=== PATIENT | female | born 1965 | race Caucasian/White ===

== ENCOUNTER 2023-08-27 19:03 | Emergency (ER) | payer OTHER, SELFPAY ==
[2023-08-27 19:04] VITALS: BP 164/114
[2023-08-27 19:28] VITALS: BMI 38.5
[2023-08-27 19:32] VITALS: BP 143/95
--- NOTE | 2023-08-27 19:51 | ED.GENMED ---
History of Present Illness
General
Chief Complaint: Musculo-Skeletal Complaint
Source: patient
Exam Limitations: none
Time Seen by Provider: 08/27/23 19:27
Travel History
Have you had any contact with someone who has COVID-19?: No
Do you have any symptoms of coronavirus? Fever > 100 degrees, chills, cough, shortness of breath, sore throat, loss of taste or smell, muscle aches, or headache?: No
History of Present Illness
History of Present Illness:
This is a 58 year old female that comes in with c/o pain.States that she has had pain for the pat 2 years and it is just getting worse. State that his started in the left hip area and goes on the lateral aspect of the left leg to the knee and comes
back into the left grown and around to the hip. States that she went to see the PCP in April and she was given Celebrex. States that she doesn't like to take medication and did not take it consistently. States that at first she thought it helped
and then she would go off. Recently she took this for about 2 weeks and she felt that her BP was going up so she stopped it again. States that she has tried PT, Right light therapy and Ultrasound. States that she has used head and ice. Last few
months she feels that the pain is getting worse. Denies any fever, chills, chest pain, SOB, abd pain, nausea vomiting, diarrhea, headache, dizziness, urinary burning.
Past History
Past History
ED Past Medical History: Asthma and Other (Back pain Disc problems, Psoriasis)
ED Past Surgical History: Orthopedic (3rd digit reconstructed, Left knee) and Other (Left eardrum sx. Deviated septum, Sx, )
Social History
Tobacco: Non-smoker
Alcohol: Occasional
Personal:
Living: with family
Employment: Employed
Review of Systems
Review of Systems
All Other Systems: ROS reviewed and negative except as documented in HPI and ROS
Constitutional: Reports no symptoms; Denies fever or chills
EENT: Reports no symptoms
Respiratory: Reports no symptoms; Denies cough or trouble breathing
Cardiac: Reports no symptoms; Denies chest pain
ABD/GI: Reports no symptoms; Denies abdominal pain, nausea, vomiting or diarrhea
: Reports no symptoms; Denies dysuria, frequency or urgency
Musculoskeletal: Reports other (Pain in the left hip down to the left knee)
Skin: Reports no symptoms
Neurological: Reports no symptoms; Denies dizzy or headache
Psychiatric: Reports no symptoms
Phy Exam
General Physical Exam
General Presentation: well appearing and no apparent distress
General age: appears stated age
General Skin: warm and dry
General Habitus: normal
General Mental: alert
General Hydration: appears well hydrated
ENT Exam
ENT Exam: TM's normal, pharynx normal and neck supple
Eye Exam
Eye Exam: EOMI
Cardiovascular Exam
Cardiovascular Exam: regular rate/rhythm, no edema, no murmur and normal peripheral pulses
Pulmonary Exam
Pulmonary Exam: lungs clear, no respiratory distress, no rales, chest non tender, no crackles, no rhonchi, no wheezing and no cough
Gastrointestinal Exam
Gastrointestinal Exam: normal bowel sounds, non tender, soft, no organomegaly, no pulsatile mass and non distended
Musculoskeletal Exam
Musculoskeletal Exam: full ROM, no edema and other (Negative for discomfort with inversion, eversion. Left hip discomfort with flexion of the left knee ,Negative for back discomfort at this time)
Skin Exam
Skin Exam: normal color, warm/dry, no petechia and other (red scaly rash noted on both hands (Psoriasis))
Psychiatric Exam
Psychiatric Exam: normal mood/affect
Course
Orders/Labs/Results
Orders:
Orders
08/27/23 19:09
Knee, Left 4 or More Views [CR Knee - Left 4 Or More View*] Urgent
Comment:
Reason For Exam: PAIN
08/27/23 19:41
Hip, Left 2-3 Views [CR Hip - LT w/wo Pel 2-3 Vw*] Urgent
Comment:
Reason For Exam: Pain
Include a pelvis x-ray?: Yes
08/27/23 19:56
CRP [C-Reactive Protein] Urgent
Complete Blood Count/With Diff Urgent
Comprehensive Metabolic Panel Urgent
Sed Rate [Erythrocyte Sed Rate] Urgent
08/27/23 20:09
Dextrose 50%-Water [Dextrose 50% Syringe] 25 grams IV NOW STA
08/27/23 21:57
US Periph Venous LOWER Ext LT Urgent
Comment:
Reason For Exam: swelling pain
Abnormal Lab Results
08/27/23
19:56
MCV 80.9 L fL
(81.0-99.0)
RDW 14.6 H %
(11.5-14.5)
C-Reactive Protein 21.00 H mg/L
(0.0-10.00)
08/27/23 19:56
08/27/23 19:56
Labs unremarkable. Sed rate normal at 18, CRP elevated at 21.0
Vital Signs
Initial and Last Documented VS:
Initial Vital Signs
Temp Pulse Resp BP Pulse Ox
98.4 F 96 22 164/114 98
08/27/23 19:04 08/27/23 19:04 08/27/23 19:04 08/27/23 19:04 08/27/23 19:04
Last Documented Vital Signs
Temp Pulse Resp BP Pulse Ox
98.4 F 96 22 143/95 98
08/27/23 19:04 08/27/23 19:04 08/27/23 19:04 08/27/23 19:32 08/27/23 19:32
MDM/Problems Addressed
Differential Diagnosis Includes:
Psoriatic arthritis, DVT, Bakers cyst
MDM/Problems Addressed:
This is a 58 year old female that comes in with c/o pain in the left hip and knee. States that this has been going on for the past 2 years but feels that this is getting worse.
Will check labs, X-ray left hip and left knee
Back into see patient. explained that her blood work is normal. Sed rate is normal but the CRP is elevated. This is most likely Psoriatic arthritis. Will get US of the left leg to r/o a DVT.
Into see patient. Explained that the US is negative. Patient to follow up with the Instructional Resource Teacher and the environmental remediation specialist. Patient will be place on Prednisone for the next 5 days and will give first dose tonight. Patient to return with any
concerns .
Chronic conditions affecting care:
NA
Acute Exacerbation and/or Progression of Chronic Illness:
NA
*Radiology
Radiology exam reviewed: radiology read reviewed (left hip=No acute fracture or dislocation. Left knee-no acute fracture or dislocation. mild tricompartmental osteoarthritis of the left knee. US-No sonographic evidence for left lower extremity
DVT)
*Pulse Oximetry
Patient hypoxic: no
*EKG
Interpreted by ED Provider?: NA
Rate: EKG- N/A
*Appeals Representative Interpretation
Rate: Appeals Representative- N/A
*Critical Care Note
Total Time (30-74mins, 75-104mins- exclusive of procedures): Not Applicable
ED Attending Note
-
Portions of this chart may have been created with voice recognition software.� Occasional wrong word or��sound alike� substitutions may have occurred due to the inherent limitations of voice recognition software.
Discharge Plan
Departure
Patient Disposition: Home (Routine Discharge)
Date of Disposition: 08/27/23
Time of Disposition: 22:34
Patient with high blood pressure during this ER visit?: Yes
Condition: Good
Covid-19: Not Applicable
Discharge Problem:
Joint pain, Swelling of left lower extremity
Instructions: Hip pain in adults, Knee Pain ED, BLOOD PRESSURE
Prescriptions:
New
prednisone 20 mg tablet
40 mg PO DAILY Qty: 8 0RF
Referrals:
Shey Casas DO [Active] - Call in 1-3 days for appt
Jairo Owens DO [Family Provider] - Call in 1-3 days for appt
Activity Restrictions/Additional Instructions:
As discussed, your blood work shows that your Sed rate is normal but the CRP which is also an inflammatory marker is elevated. Otherwise your labs are normal. Your US is negative for DVT and your x-ray of the hip is normal and the knee there is mild
osteoarthrosis. Please follow up with the Instructional Resource Teacher and the environmental remediation specialist. This may be Psoriatic arthritis. You have been given your first dose of steroid here and a prescription for the next 4 days has been sent to your Pharmacy. A
lyme titer has been sent but this will not come back tonight. If this is positive you will be called. IF YOU HAVE ANY OTHER CONCERNS PLEASE RETURN TO THE EMERGENCY ROOM.
Interventions
Interventions:
*Risk Screen - Suicide Last Done: 08/27/23 19:04
*General Assessment Last Done: 08/27/23 19:34
*Neglect/Abuse Screening Last Done: 08/27/23 19:04
ED- Fall Risk Assessment Last Done: 08/27/23 19:34
ED-Musculoskeletal Assessment Last Done: 08/27/23 19:34
Discharge Date and Time
Print Language: SAO TOMEAN
[2023-08-27 20:00] VITALS: BP 131/78
[2023-08-27 20:04] LABS: % Basophils 1.2 % (0-2); % Immature Granulocytes 0.1 % (0-0.5); % Monocytes 6.5 % (1.7-9.3); % Neutrophils 53.2 % (42.2-75.2); Absolute Basophils 0.1 10^3/uL (0-0.2); Absolute Eosinophils 0.3 10^3/uL (0-0.7); Absolute Lymphocytes 2.9 10^3/uL (1.2-3.4); Absolute Monocytes 0.5 10^3/uL (0.1-0.6); Absolute Neutrophils 4.3 10^3/uL (1.4-6.5); Hematocrit 40.6 % (37.0-47.0); Hemoglobin 13.8 g/dL (12.0-16.0); Mean Corpuscular Hgb 27.5 pg (27.0-31.0); Mean Corpuscular Volume 80.9 fL (81.0-99.0); Mean Platelet Volume 9.4 fL (7.4-10.4); Nucleated Red Blood Cells % 0 %; Platelet Count 310 10^3/uL (130-400); Red Blood Cell Count 5.02 10^6/uL (4.20-5.40); Red Cell Dist. Width 14.6 % (11.5-14.5); White Blood Cell Count 8.2 10^3/uL (4.8-10.8)
[2023-08-27 20:09] LABS: Erythrocyte Sed Rate 18 mm/hour (0-20)
[2023-08-27 20:31] LABS: ALT (SGPT) 19 U/L (0-35); AST (SGOT) 25 U/L (14-36); Albumin 4.5 g/dl (3.5-5.0); Alkaline Phosphatase 121 U/L (38-126); Blood Urea Nitrogen 15 mg/dl (7-17); Calcium 9.7 mg/dl (8.4-10.2); Carbon Dioxide 26 mmol/L (22-30); Chloride 103 mmol/L (98-107); Estimated Creatinine Clearance > 125 ml/min; Glucose 99 mg/dl (70-99); Potassium 4.2 mmol/L (3.5-5.1); Sodium 140 mmol/L (135-145); Total Bilirubin 0.5 mg/dl (0.2-1.3); Total Protein 7.7 g/dl (6.3-8.2); eGFR > 60.00
[2023-08-27 22:55] VITALS: BP 141/91
[2023-08-27] MEDS: DELTASONE 50 MG PO (22:57)
[2023-08-27 22:58] VITALS: BP 141/91
[2023-08-30 13:58] LABS: Lyme Antibody Screen, EIA Negative (Negative)
== END 2023-08-27 23:00 | disposition home or self-care (01) ==
LOC: EMR 19:03
PROVIDERS: Clinical Nurse Specialist Family Health; EMERGENCY PHYSICIAN Emergency Medicine; FAMILY PHYSICIAN Family Medicine
DX: M79.89 Other specified soft tissue disorders (principal); M25.552 Pain in left hip; M25.562 Pain in left knee; M79.605 Pain in left leg; M54.9 Dorsalgia, unspecified; M17.12 Unilateral primary osteoarthritis, left knee; J45.909 Unspecified asthma, uncomplicated; L40.9 Psoriasis, unspecified; Z88.3 Allergy status to other anti-infective agents; Z91.040 Latex allergy status; Z88.0 Allergy status to penicillin; Z91.048 Other nonmedicinal substance allergy status
CPT/HCPCS: 99284; 73502; 73564; 80053; 85025; 85652; 86140; 86618; 93971

== ENCOUNTER → 2023-10-26 16:32 | Outpatient (REF) | payer OTHER, SELFPAY | LOC: MRI 16:32 | PROVIDERS: ATTENDING PHYSICIAN Orthopaedic Surgery | DX: M54.50 Low back pain, unspecified (principal); M25.562 Pain in left knee | CPT/HCPCS: 72148; 73721 ==

== ENCOUNTER → 2023-11-14 15:31 | Outpatient (REF) | payer OTHER, SELFPAY | LOC: RAD 15:31 | PROVIDERS: ATTENDING PHYSICIAN Internal Medicine Rheumatology; FAMILY PHYSICIAN Family Medicine | DX: L40.50 Arthropathic psoriasis, unspecified (principal); M46.1 Sacroiliitis, not elsewhere classified | CPT/HCPCS: 72170 ==

== ENCOUNTER → 2023-11-30 13:50 | Outpatient (REF) | payer OTHER, SELFPAY | LOC: RAD 13:50 | PROVIDERS: ATTENDING PHYSICIAN Internal Medicine Gastroenterology; FAMILY PHYSICIAN Family Medicine | DX: R10.32 Left lower quadrant pain (principal) | CPT/HCPCS: 74177; Q9967 ==

== ENCOUNTER → 2024-01-15 18:25 | Outpatient (REF) | payer OTHER, SELFPAY | LOC: PAVMRI 18:25 | PROVIDERS: ATTENDING PHYSICIAN Physician Assistant; FAMILY PHYSICIAN Family Medicine | DX: M25.552 Pain in left hip (principal) | CPT/HCPCS: 73721 ==

== ENCOUNTER 2024-07-14 17:45 | Emergency (ER) | payer OTHER, SELFPAY ==
[2024-07-14 17:48] VITALS: BP 130/99
[2024-07-14 18:21] LABS: % Basophils 0.7 % (0-2); % Immature Granulocytes 0.3 % (0-0.5); % Lymphocytes 38.2 % (20.5-51.1); % Monocytes 6.6 % (1.7-9.3); % Neutrophils 52.2 % (42.2-75.2); Absolute Basophils 0.1 10^3/uL (0-0.2); Absolute Eosinophils 0.1 10^3/uL (0-0.7); Absolute Lymphocytes 2.6 10^3/uL (1.2-3.4); Absolute Monocytes 0.5 10^3/uL (0.1-0.6); Absolute Neutrophils 3.6 10^3/uL (1.4-6.5); Hematocrit 44.6 % (37.0-47.0); Hemoglobin 14.7 g/dL (12.0-16.0); Mean Corpuscular Hgb 27.3 pg (27.0-31.0); Mean Corpuscular Volume 82.7 fL (81.0-99.0); Mean Platelet Volume 9.6 fL (7.4-10.4); Nucleated Red Blood Cells % 0 %; Platelet Count 292 10^3/uL (130-400); Red Blood Cell Count 5.39 10^6/uL (4.20-5.40); Red Cell Dist. Width 15.3 % (11.5-14.5); White Blood Cell Count 6.9 10^3/uL (4.8-10.8)
[2024-07-14 18:22] LABS: ALT (SGPT) 15 U/L (0-35); AST (SGOT) 20 U/L (14-36); Albumin 4.5 g/dl (3.5-5.0); Alkaline Phosphatase 97 U/L (38-126); Blood Urea Nitrogen 16 mg/dl (7-17); Carbon Dioxide 27 mmol/L (22-30); Chloride 102 mmol/L (98-107); Glucose 92 mg/dl (70-99); Lipase 113 U/L (23-300); Potassium 4.6 mmol/L (3.5-5.1); Sodium 140 mmol/L (135-145); Total Bilirubin 0.7 mg/dl (0.2-1.3); Total Protein 7.8 g/dl (6.3-8.2); eGFR > 60.00
--- NOTE | 2024-07-14 19:39 | ED.GENMED ---
History of Present Illness
General
Chief Complaint: Abdominal Pain
Source: patient
Exam Limitations: none
Time Seen by Provider: 07/14/24 19:08
Nursing documentation reviewed up to this point in time: agreed with
History of Present Illness
History of Present Illness:
59-year-old female with history as noted presents to the ER for evaluation of abdominal/flank pain. Patient reports that she was wearing very tight high wasted jeans 'within unforgiving waistband.' She says that the waistband was around the lower
ribs/upper abdomen. She says that she was sitting down and turned towards her side and felt immediate pain in the left flank/upper abdomen. She says that she heard a loud 'pop.' She has had intense pain in the left upper abdomen/flank since and
so she came to the ER for evaluation. She has had some mild nausea denies any vomiting. No change in her bowels. No urinary symptoms or hematuria.
Past History
Past History
ED Past Medical History: Asthma and Other (Back pain Disc problems, Psoriasis)
ED Past Surgical History: Orthopedic (3rd digit reconstructed, Left knee) and Other (Left eardrum sx. Deviated septum, Sx, )
Social History
Tobacco: Non-smoker
Alcohol: Occasional
Personal:
Living: with family
Employment: Employed
Review of Systems
Review of Systems
All Other Systems: ROS reviewed and negative except as documented in HPI and ROS
Constitutional: Denies fever
Respiratory: Denies trouble breathing
Cardiac: Denies chest pain
ABD/GI: Reports abdominal pain and nausea; Denies vomiting or diarrhea
: Reports flank pain; Denies dysuria or bleeding
Musculoskeletal: Denies neck pain
Neurological: Denies headache
Phy Exam
Physical Exam
Physical Exam:
General: Awake, alert, sitting up holding her side appears uncomfortable
Head: Normocephalic, atraumatic
Eyes: Conjunctiva normal, sclera anicteric
Throat: Airway intact, handling secretions
Neck: Trachea midline
Lungs: Clear to auscultation bilaterally, no wheezing, rales, rhonchi
Heart: Regular rate; mild tenderness around the left lower ribs anterior axillary line; no chest wall bruising or crepitus
Abd: Soft, non distended, tender to palpation left upper abdomen; no bruising
Neuro: Cranial nerves grossly intact, speech fluid, motor and sensory intact, ambulatory
Skin: no rash in area of concern
Extremities: Warm and well-perfused
Scores
Heart Failure Risk
Heart Failure Risk Score: Not Applicable
Heart Score for Chest Pain Patients
STEMI patient?: Not applicable
Withdrawal Assessment of Alcohol
Withdrawal Assessment Completed?: Not applicable
Course
Orders/Labs/Results
Orders:
Orders
07/14/24 17:57
Complete Blood Count/With Diff Urgent
Comprehensive Metabolic Panel Urgent
Lipase Urgent
07/14/24 19:38
CT Abd/pelvis W Iv Cont Urgent
Comment:
Reason For Exam: left flank/upper abd pain and tenderness
07/14/24 19:42
Urinalysis Reflex To Culture Urgent
Date Specimen was Collected: 07/14/24
Time Specimen was Collected: 19:16
Abnormal Lab Results
07/14/24
17:57
RDW 15.3 H %
(11.5-14.5)
07/14/24 17:57
07/14/24 17:57
Vital Signs
Initial and Last Documented VS:
Initial Vital Signs
Temp Pulse Resp BP Pulse Ox
37.1 C 94 16 130/99 96
07/14/24 17:48 07/14/24 17:48 07/14/24 17:48 07/14/24 17:48 07/14/24 17:48
Last Documented Vital Signs
Temp Pulse Resp BP Pulse Ox
37.1 C 94 16 130/99 96
07/14/24 17:48 07/14/24 17:48 07/14/24 17:48 07/14/24 17:48 07/14/24 17:48
MDM/Problems Addressed
Differential Diagnosis Includes:
Rib fracture, costochondritis, splenic injury, muscular strain/tear
MDM/Problems Addressed:
59-year-old female presents with left upper abdominal/flank pain as described above. Vitals and exam as above. She did labs and in triage which were unremarkable. Check urinalysis and CT. Reassess after the above.
CT shows no acute abnormalities. Suspect likely costochondritis versus muscular injury. Advised NSAIDs, rest, ice; stable for discharge to follow-up with PCP. Patient comfortable with this plan. All questions answered.
*Radiology
Radiology exam reviewed: radiology read reviewed
*Pulse Oximetry
Patient hypoxic: no
*Critical Care Note
Total Time (30-74mins, 75-104mins- exclusive of procedures): Not Applicable
Data Reviewed
Source: patient and records
ED Attending Note
-
Portions of this chart may have been created with voice recognition software.� Occasional wrong word or��sound alike� substitutions may have occurred due to the inherent limitations of voice recognition software.
Discharge Plan
Departure
Patient Disposition: Home (Routine Discharge)
Date of Disposition: 07/14/24
Time of Disposition: 20:55
Patient with high blood pressure during this ER visit?: No
Discharge Problem:
Left flank pain
Instructions: Flank pain - ED discharge instructions
Prescriptions:
No Action
prednisone 20 mg tablet
40 mg PO DAILY Qty: 8 0RF
Referrals:
UNKNOWN - PT DOES,NOT KNOW [Unknown Provider] -
Activity Restrictions/Additional Instructions:
Thank you for visiting the Emergency Department at [facility].
1. Please schedule a follow up appointment as directed. Call first thing tomorrow morning to make an appointment.
2. If indicated, please take your medications as instructed and indicated on discharge paperwork.
3. If any of your symptoms do not improve, or persist, or become more severe within 6-12 hours, please return to the emergency department for further care.
4. Please return to the emergency department if you develop a headache, neck pain/stiffness, fever greater than 100.4F, chest pain, shortness of breath, persistent nausea, vomiting, slurred speech, difficulty walking, numbness/tingling, weakness,
signs of infection or any other symptoms that are worrisome to you.
Please call [phone] if you have any questions.
Interventions
Interventions:
*Risk Screen - Suicide Last Done: 07/14/24 17:48
*General Assessment Last Done: 07/14/24 17:48
*Neglect/Abuse Screening Last Done: 07/14/24 17:48
Discharge Date and Time
Print Language: WOLOF
[2024-07-14 19:54] LABS: Urine Albumin Negative (Neg - Trace); Urine Bilirubin Negative (Negative); Urine Character Clear (Clear); Urine Color Yellow; Urine Glucose Negative (Negative); Urine Ketone Negative (Negative); Urine Leukocyte Negative (Negative); Urine Nitrite Negative (Negative); Urine Occult Blood Negative (Negative); Urine Specific Gravity 1.005 (<1.030); Urine Urobilinogen Negative (Neg - 1+)
[2024-07-14 20:45] VITALS: BP 141/92
== END 2024-07-14 21:27 | disposition home or self-care (01) ==
LOC: EMR 17:45
PROVIDERS: Emergency Medicine; EMERGENCY PHYSICIAN Emergency Medicine; FAMILY PHYSICIAN Family Medicine
DX: R10.9 Unspecified abdominal pain (principal); J45.909 Unspecified asthma, uncomplicated
CPT/HCPCS: 99284; 74177; 80053; 81003; 83690; 85025; Q9967

== ENCOUNTER → 2025-02-25 15:12 | Outpatient (REF) | payer OTHER, SELFPAY | LOC: RAD 15:12 | PROVIDERS: ATTENDING PHYSICIAN Family Medicine | DX: R07.89 Other chest pain (principal) | CPT/HCPCS: 71101 ==